=== PATIENT | female | born 1990 | race Caucasian/White ===

== ENCOUNTER → 2020-06-09 01:46 | Observation (INO) ==
[2020-06-09 00:39] LABS: Bacteria,Urine Few per hpf (None-Few); Bilirubin,Urine Negative (Negative); Blood,Urine Trace (Negative); Clarity,Urine Turbid (Clear); Color,Urine Light-Yellow (Yellow); Glucose,Urine (UA) Normal (Normal); Ketones,Urine Negative (Negative); Leukocyte Esterase,Urine Large (Negative); Mucus,Urine Few per lpf (None-Few); Nitrite,Urine Negative (Negative); Protein,Urine Trace mg/dL (Neg-Trace); Specific Gravity,Urine 1.008 (1.010-1.025); Squamous Epithelial Cell,Urine Few per hpf (None-Few); Urobilinogen,Urine Normal (Normal); WBC,Urine TNTC per hpf (0-3)
[~2020-06-09 01:46] MED LIST: Ringers Solution, Lactated 1,000 ML IVC SCH
== END | disposition home or self-care (01) ==
LOC: 1NENULAB
PROVIDERS: ADMIT Student in an Organized Health Care Education/Training Program; ATTEND Student in an Organized Health Care Education/Training Program

== ENCOUNTER 2020-07-23 09:56 | Inpatient (IN) ==
[~2020-07-23 09:56] MED LIST changes: +CeFAZolin 2,000 MG/50 ML BAG IVPB ONE; +Famotidine 20 MG/2 ML VIAL IVP ONE; +Metoclopramide 10 MG/2 ML VIAL IVP ONE; +Oxytocin 20 units/ LR 1000 mL 20 UNIT/1,000 ML BAG IVC ONE; -Ringers Solution, Lactated 1,000 ML IVC SCH; +Ringers Solution, Lactated 1,000 ML ONE
[2020-07-23 10:10] LABS: Basophils % 0.1 %; Eosinophils # 0.2 K/mcL (0.0-0.6); Eosinophils % 1.1 %; Hematocrit 37.9 % (35.3-44.9); Hemoglobin 12.5 g/dL (11.5-15.4); Immature Granulocytes % 0.7 % (0-4); Lymphocytes # 2.1 K/mcL (0.6-4.6); Lymphocytes % 15.1 %; Mean Corpuscular Hemoglobin 28.6 pg (28.0-33.3); Mean Corpuscular Volume 86.7 fL (83.0-100.0); Mean Platelet Volume 9.9 fL (9.4-12.4); Monocytes # 0.7 K/mcL (0.0-1.3); Neutrophils # 10.7 K/mcL (1.6-8.9); Platelet Count 209 K/mcL (140-400); Red Blood Count 4.37 M/mcL (3.82-4.97); Red Cell Distribution Width 13.5 % (11.5-14.5); White Blood Count 13.8 K/mcL (4.3-11.1)
[2020-07-23] MEDS ORDERED: *HR* Morphine Sulfate/PF 10 MG/10 ML AMPUL ONE (10:50)
[2020-07-23] MEDS ORDERED: Ringers Solution, Lactated 1,000 ML ONE (11:17)
[2020-07-23] MEDS ORDERED: *HR* Phenylephrine 10 MG/ML VIAL ONE (11:21)
[2020-07-23] MEDS ORDERED: Ondansetron 4 MG/2 ML VIAL ONE (11:24)
[2020-07-23] MEDS ORDERED: Dexamethasone 4 MG/ML VIAL ONE (11:24)
[2020-07-23 11:40] LABS: Amphetamine Screen,Urine Negative ng/mL (Cutoff=1000); Barbiturate Screen,Urine Negative ng/mL (Cutoff=200); Benzodiazepines Screen,Urine Negative ng/mL (Cutoff=200); Cannabinoid Screen,Urine Negative ng/mL (Cutoff = 50); Cocaine Screen,Urine Negative ng/mL (Cutoff= 300); Opiate Screen,Urine Negative ng/mL (Cutoff=300); Phencyclidine Screen,Urine Negative ng/mL (Cutoff=25)
[2020-07-23] MEDS ORDERED: Oxytocin 20 units/ LR 1000 mL 20 UNIT/1,000 ML BAG IVC ONE (12:07)
[2020-07-23] MEDS ORDERED: Ondansetron 4 MG/2 ML VIAL IVP PRN (14:27)
[2020-07-23] MEDS ORDERED: Metoclopramide 10 MG/2 ML VIAL IVP PRN (14:27)
[2020-07-23] MEDS ORDERED: Ringers Solution, Lactated 1,000 ML IVC SCH (14:27)
[2020-07-23] MEDS ORDERED: Sennosides 8.6 MG TABLET PO PRN (14:27)
[2020-07-23] MEDS ORDERED: Simethicone 80 MG TAB.CHEW PO PRN (14:27)
[2020-07-23] MEDS ORDERED: Rho Immune Globulin 1,500 UNIT SYRINGE IM ONE (14:27)
[2020-07-23] MEDS ORDERED: Oxytocin 20 units/ LR 1000 mL 20 UNIT/1,000 ML BAG IVC SCH (14:27)
[2020-07-23] MEDS ORDERED: Methylergonovine 0.2 MG/ML AMPUL IM ONE (14:39)
[2020-07-23] MEDS: Oxytocin 20 units/ LR 1000 mL 20 UNIT/1,000 ML BAG IVC SCH (14:42)
[2020-07-24] MEDS: Oxytocin 20 units/ LR 1000 mL 20 UNIT/1,000 ML BAG IVC SCH (00:54)
[2020-07-24] MEDS: Ibuprofen 600 MG TABLET PO PRN ×4 (03:29→21:40)
[2020-07-24 06:37] LABS: Basophils % 0.1 %; Eosinophils % 0.3 %; Immature Granulocytes % 0.5 % (0-4); Lymphocytes # 1.9 K/mcL (0.6-4.6); Lymphocytes % 12.4 %; Mean Corpuscular HGB Conc 34.3 g/dL (31.6-35.5); Mean Corpuscular Hemoglobin 30.5 pg (28.0-33.3); Mean Corpuscular Volume 88.9 fL (83.0-100.0); Mean Platelet Volume 10.1 fL (9.4-12.4); Monocytes # 0.9 K/mcL (0.0-1.3); Neutrophils # 12.5 K/mcL (1.6-8.9); Platelet Count 145 K/mcL (140-400); Red Blood Count 3.15 M/mcL (3.82-4.97); Red Cell Distribution Width 13.4 % (11.5-14.5); Segmented Neutrophils % 80.7 %; White Blood Count 15.5 K/mcL (4.3-11.1)
[2020-07-24 06:41] LABS: Hemoglobin 9.6 g/dL (11.5-15.4)
[2020-07-24] MEDS: Prenatal Vit/FA 1 EACH TABLET PO SCH (08:07)
[2020-07-24] MEDS: *HR* OxyCODONE/APAP 5/325 TABLET PO PRN (22:22)
[2020-07-24] MEDS: Ondansetron ODT 4 MG TAB.RAPDIS SL PRN (22:37)
[2020-07-25] MEDS: Ibuprofen 600 MG TABLET PO PRN (03:43)
[2020-07-25] MEDS: Ondansetron ODT 4 MG TAB.RAPDIS SL PRN (05:52)
[2020-07-25] MEDS: *HR* OxyCODONE/APAP 5/325 TABLET PO PRN ×2 (05:52→10:05)
[2020-07-25 07:57] VITALS: BP 113/72
[2020-07-25] MEDS: Prenatal Vit/FA 1 EACH TABLET PO SCH (08:09)
== END 2020-07-25 12:30 | disposition home or self-care (01) | DRG 787 ==
LOC: 1NENULAB → 1NENUOBS 14:20
PROVIDERS: ADMIT Obstetrics & Gynecology; ATTEND Student in an Organized Health Care Education/Training Program